=== PATIENT | male | born 1965 | race Caucasian/White ===

== ENCOUNTER 2024-11-07 10:24 | Inpatient (IN) | payer OTHER ==
[~2024-11-07] VITALS: Ht 180.3 cm; Wt 63.8 kg
[2024-11-07 10:52] LABS: BASOPHILS ABSOLUTE AUTO 0.04 K/mm3 (0.00-0.23); BASOPHILS PERCENT AUTO 0 % (0-2); EOSINOPHILS ABSOLUTE AUTO 0.00 K/mm3 (0.00-0.68); EOSINOPHILS PERCENT AUTO 0 % (0-6); Hematocrit 47.9 % (37.0-53.0); Hemoglobin 14.7 g/dL (13.5-17.5); IMMATURE GRAN ABSOLUTE AUTO 0.08 K/mm3 (0.00-0.10); IMMATURE GRAN PERCENT AUTO 1 % (0-1); LYMPHOCYTES ABSOLUTE AUTO 1.70 K/mm3 (0.84-5.20); LYMPHOCYTES PERCENT AUTO 11 % (21-46); MONOCYTES ABSOLUTE AUTO 1.27 K/mm3 (0.16-1.47); MONOCYTES PERCENT AUTO 8 % (4-13); Mean Corpuscular HGB Conc 30.7 g/dL (31.5-36.5); Mean Corpuscular Volume 97 fL (80-100); NEUTROPHILS ABSOLUTE AUTO 12.59 K/mm3 (1.96-9.15); NEUTROPHILS PERCENT AUTO 80 % (41-73); NRBC ABSOLUTE 0.02 K/mm3 (0.00-0.02); NRBC Auto 0.1 /100 WBC (0.0-0.2); Platelet Count 372 K/mm3 (150-400); RDW Coefficient Variation 15.7 % (11.7-14.2); RDW Standard Deviation 55.9 fL (35.1-46.3)
[2024-11-07 11:18] LABS: Alanine Aminotransfer (ALT/SGP 16.0 U/L (12-78); Albumin, Blood 2.6 g/dL (3.4-5.0); Albumin/Globulin Ratio 0.5 (0.8-1.8); Anion Gap 4.0 mmol/L (3-11); Aspartate Aminotrans (AST/SGOT 23.0 U/L (12-37); Bilirubin, Total 0.6 mg/dL (0.1-1.0); Blood Urea Nitrogen 39.0 mg/dL (8-24); CO2, Blood 37.0 mmol/L (21-32); Calcium, Blood 9.6 mg/dL (8.5-10.1); Chloride, Blood 118.0 mmol/L (98-108); Creatinine, Blood 0.82 mg/dL (0.60-1.20); Globulin, Blood 5.0 g/dL (2.2-4.0); Glucose, Blood 116.0 mg/dL (70-99); Potassium, Blood 3.1 mmol/L (3.5-5.5); Sodium, Blood 156.0 mmol/L (136-145); Total Protein, Blood 7.6 g/dL (6.4-8.2)
[2024-11-07] MEDS ORDERED: NS 1,000 ML IV SCH (13:00)
[2024-11-07 14:01] LABS: Magnesium, Blood 2.8 mg/dL (1.6-2.4); Phosphorus, Blood 3.1 mg/dL (2.5-4.9)
[2024-11-07 14:08] LABS: Source, Urine Voided
[2024-11-07 14:13] LABS: Bilirubin, Urine Neg (Neg); Color, Urine Yellow (P-Yellow); Glucose Qualitative, Urine Neg (Neg); Ketones, Urine Neg (Neg); Leukocyte Esterase, Urine Neg (Neg); Protein, Urine 2+ (Neg); Specific Gravity, Urine 1.010 (1.003-1.022); Urobilinogen, Urine NORM (Normal)
[2024-11-07 14:47] LABS: Red Blood Cells, Urine 0-2 /hpf (0-2)
[2024-11-07] MEDS ORDERED: NS 1,000 ML IV STA (16:10)
[2024-11-07] MEDS ORDERED: Albuterol 2.5 MG/3 ML VIAL INH PRN (16:10)
[2024-11-07] MEDS ORDERED: Ondansetron HCl 2 MG / ML 2ML Vial IV PRN (16:15)
[2024-11-07] MEDS ORDERED: Ipratropium/Albuterol SulF 2.5-0.5MG/3 ML Amp INH SCH (16:15)
[2024-11-07] MEDS ORDERED: Polyethylene Glycol 3350 17 gm PT SCH (17:00)
[2024-11-07] MEDS ORDERED: Piperacillin/Tazobactam Sod 3.375 GM in NS 100 ML IV SCH (17:00)
[2024-11-07 19:28] LABS: Anion Gap Unable to Calculate mmol/L (3-11); Blood Urea Nitrogen 32 mg/dL (8-24); CO2, Blood 36 mmol/L (21-32); Calcium, Blood 7.9 mg/dL (8.5-10.1); Chloride, Blood 122 mmol/L (98-108); Creatinine, Blood 0.69 mg/dL (0.60-1.20); Glucose, Blood 199 mg/dL (70-99); Potassium, Blood 2.4 mmol/L (3.5-5.5); Sodium, Blood 153 mmol/L (136-145)
[2024-11-07 20:00] VITALS: BP 100/78
[2024-11-07] MEDS ORDERED: FentaNYL Citrate 50 MCG/ML 2 ML Injection IV PRN (22:35)
[2024-11-08] VITALS (7 sets, daily range): BP systolic 73–107; BP diastolic 59–78
[2024-11-08 04:05] LABS: Hematocrit 37.5 % (37.0-53.0); Hemoglobin 11.0 g/dL (13.5-17.5); Mean Corpuscular HGB Conc 29.3 g/dL (31.5-36.5); Mean Corpuscular Volume 100 fL (80-100); NRBC ABSOLUTE 0.00 K/mm3 (0.00-0.02); NRBC Auto 0.0 /100 WBC (0.0-0.2); Platelet Count 256 K/mm3 (150-400); RDW Coefficient Variation 15.2 % (11.7-14.2); RDW Standard Deviation 55.7 fL (35.1-46.3)
[2024-11-08 04:24] LABS: Magnesium, Blood 2.4 mg/dL (1.6-2.4)
[2024-11-08 04:29] LABS: Anion Gap 3.0 mmol/L (3-11); Blood Urea Nitrogen 23.0 mg/dL (8-24); CO2, Blood 35.0 mmol/L (21-32); Calcium, Blood 7.7 mg/dL (8.5-10.1); Chloride, Blood 114.0 mmol/L (98-108); Creatinine, Blood 0.66 mg/dL (0.60-1.20); Glucose, Blood 361.0 mg/dL (70-99); Potassium, Blood 2.4 mmol/L (3.5-5.5); Sodium, Blood 150.0 mmol/L (136-145)
[2024-11-08] MEDS ORDERED: Potassium Chl 20MEQ/Water100ML 100 ML IV SCH (05:00)
--- NOTE | 2024-11-08 05:54 | NUR ---
SHIFT SUMMARY NO ACUTE CHANGES OVERNIGHT. PT REMAINS NON VERBAL AT BASELINE, ANSWERING YES OR NO QUESTIONS WITH THUMBS UP/DOWN. PT HAD PAST CVA WITH LEFT SIDED DEFICITS. Q2HR REPOSITIONING IN PLACE. PT ON TELE NSR IN 60s. PT ON 6L HUMIDIFIED O2 OVER TRACH SATTING >96%. PT REQUIRED FREQUENT DEEP SUCTIONING THROUGHOUT NIGHT WITH LARGE AMOUNTS OUT. SPUTUM COLLECTED AND SENT TO LAB. POTASSIUM REPLACED THROUGHOUT NIGHT PER ORDERS. IV ABX GIVEN PER EMAR. CONTINUES FLUIDS RUNNING @ 125. NO FURTHER QUESTIONS OR CONCERNS AT THIS TIME. WILL CONTINUE WITH PLAN OF CARE.
[2024-11-08] MEDS ORDERED: Enoxaparin 40 MG/0.4 ML SYR SC SCH (09:00)
[2024-11-08] MEDS ORDERED: Lactulose 200 GM/300 ML Enema 300ML BTL PR SCH (10:00)
[2024-11-08 14:10] LABS: Potassium, Blood 3.1 mmol/L (3.5-5.5); Sodium, Blood 156.0 mmol/L (136-145)
[2024-11-08] MEDS ORDERED: Magnesium Hydroxide Conc 10 ML UDC PT PRN (15:25)
[2024-11-08] MEDS ORDERED: Docusate Sodium Liquid 100 MG UDC PT PRN (15:25)
--- NOTE | 2024-11-08 17:23 | NUR ---
SHIFT SUMMARY. SHIFT HAS GONE WELL OVERALL. PT CONDITION OVERALL UNCHANGED THROUGHOUT SHIFT. NONVERBAL, ABLE TO ANSWER YES/NO QUESTIONS APPROPRIATELY VIA THUMBS UP/DOWN. HAS BEEN RUNNING SINUS ON TELE WITH RATE ANYWHERE BETWEEN 50s-70s. BP HAS BEEN SOFT BUT STABLE, MAP HAS REMAINED >65 THUS FAR. TUBE FEEDING ORDERS INPUT VIA DEPOSITION REPORTER THIS AFTERNOON, STARTING NOW. ONE LACTULOSE ENEMA ADMINISTERED THIS MORNING, PT WAS ABLE TO HAVE BM RIGHT AFTER WELL ANOTHER MORE RECENTLY. REFUSED EVENING LACTULOSE DESPITE EDUCATION ON INDICATION. Q2 HOUR REPOSITION. BED LOCKED IN LOWEST POSITION. CALL LIGHT LEFT WTIHIN REACH. CONTINUING TO MONITOR.
[2024-11-08] MEDS ORDERED: TAZOBACTAM SOD IV SCH (18:00)
[2024-11-08] MEDS ORDERED: PIPERACILLIN IV SCH (18:00)
[2024-11-08] MEDS ORDERED: DEXTROSE 5% IV SCH (18:00)
[2024-11-08] MEDS ORDERED: Insulin Human Lispro 100 Units/ML 3ML Syringe SC SCH (18:00)
[2024-11-08] MEDS ORDERED: Protein Supplement 30 ML UD PT SCH (21:00)
[2024-11-08] MEDS ORDERED: XANAX0.25 MG PT (21:15)
[2024-11-09] VITALS (7 sets, daily range): BP systolic 83–107; BP diastolic 62–74
[2024-11-09 03:27] LABS: BASOPHILS ABSOLUTE AUTO 0.01 K/mm3 (0.00-0.23); BASOPHILS PERCENT AUTO 0 % (0-2); EOSINOPHILS ABSOLUTE AUTO 0.15 K/mm3 (0.00-0.68); EOSINOPHILS PERCENT AUTO 2 % (0-6); Hematocrit 33.8 % (37.0-53.0); Hemoglobin 10.1 g/dL (13.5-17.5); IMMATURE GRAN ABSOLUTE AUTO 0.05 K/mm3 (0.00-0.10); IMMATURE GRAN PERCENT AUTO 1 % (0-1); LYMPHOCYTES ABSOLUTE AUTO 1.09 K/mm3 (0.84-5.20); LYMPHOCYTES PERCENT AUTO 14 % (21-46); MONOCYTES ABSOLUTE AUTO 0.56 K/mm3 (0.16-1.47); MONOCYTES PERCENT AUTO 7 % (4-13); Mean Corpuscular HGB Conc 29.9 g/dL (31.5-36.5); Mean Corpuscular Volume 98 fL (80-100); NEUTROPHILS ABSOLUTE AUTO 6.10 K/mm3 (1.96-9.15); NEUTROPHILS PERCENT AUTO 77 % (41-73); NRBC ABSOLUTE 0.00 K/mm3 (0.00-0.02); NRBC Auto 0.0 /100 WBC (0.0-0.2); Platelet Count 241 K/mm3 (150-400); RDW Coefficient Variation 14.6 % (11.7-14.2); RDW Standard Deviation 52.4 fL (35.1-46.3)
[2024-11-09 03:52] LABS: Magnesium, Blood 2.4 mg/dL (1.6-2.4); Thyroid Stimulating Hormone 4.79 uIU/mL (0.360-4.800)
[2024-11-09 03:53] LABS: Anion Gap 2.0 mmol/L (3-11); Blood Urea Nitrogen 10.0 mg/dL (8-24); CO2, Blood 34.0 mmol/L (21-32); Calcium, Blood 8.1 mg/dL (8.5-10.1); Chloride, Blood 115.0 mmol/L (98-108); Creatinine, Blood 0.53 mg/dL (0.60-1.20); Glucose, Blood 117.0 mg/dL (70-99); Phosphorus, Blood 1.7 mg/dL (2.5-4.9); Potassium, Blood 3.2 mmol/L (3.5-5.5); Sodium, Blood 148.0 mmol/L (136-145)
--- NOTE | 2024-11-09 04:53 | NUR ---
SHIFT SUMMARY NO ACUTE EVENTS OVERNIGHT. PTs BP SOFT THROUGHOUT NIGHT HOWEVER MAP >65. OTHERWISE VSS. HUMIDIFIED O2 OVER PTs TRACH. ON TELE PT BRADYCARDIC TOUCHING 40s BUT TYPICALLY IN THE 50s-60s. PT ABLE TO USE CALL LIGHT TO REQUEST DEEP SUCTIONING PRN. FREQUENTLY SUCTIONED WITH LARGE AMOUNTS OUT. PT REFUSED LACTULOSE ENEMA. LACTULOSE PT GIVEN ALONG WITH OTHER STOOL SOFTENERS. PT HAD MULTIPLE SOFT BMs THROUGHOUT NIGHT. NO C/O PAIn HOWEVER PT PERSISTENTLY USING CALL LIGHT D/T BEING UNCOMFORTABLE IN BED. FREQUENTLY REPOSITIONED WITH SEVERAL PILLOWS AND USING DIFFERENT TECHNIQUES HOWEVER PT COULD NOT GET COMFORTABLE. AWARE AND ATARAX PRN ORDERED AND GIVEN WITH GOOD EFFECT. PALLIATIVE CARE NURSE MESSAGED TO BRING IN NECK PILLOW FOR PT TO SEE IF MAYBE THAT MIGHT MAKE HIM MORE COMFORTABLE. TUBE FEEDINGS CONTINUED AT 14ML/HR WITH HOB ELEVATED. NO C/O NAUSEA OR STOMACH PAIN NOTED. NO FURTHER QUESTIONS OR CONCERNS AT THIS TIME. WILL CONTINUE WITH PLAN OF CARE.
[2024-11-09] MEDS ORDERED: Potassium Chl 20MEQ/Water100ML 100 ML IV SCH (06:15)
[2024-11-09] MEDS ORDERED: Potassium Phosphate Dibasic 30 MM in Dextrose 5% 500 ML IV STA (07:46)
[2024-11-09] MEDS ORDERED: Multivitamins-Minerals Liquid 15 ML Oral Syringe PT SCH (09:00)
--- NOTE | 2024-11-09 10:35 | NUR ---
AM NOTE: PATIENT ALERT AND ORIENTED X3. OPENS EYES WHEN ASKED AND GIVES THUMBS UP AND DOWN TO YES AND NO QUESTIONS. SPEECH VERY SLURRED AND HARD TO UNDERSTAND. ASKED TO BRING IN PATIENTS PASSY-TONY VALVE THAT PATIENT USES AT HOME. FOLLOWING COMMANDS. LEFT SIDE DEFICIT WITH NO MOVEMENTS TO UPPER AND LOWER EXTREMITIES. LEFT WRIST CONTRACTURE. MINIMAL MOVEMENT TO RIGHT LOWER EXTREMITIY. PATIENT ABLE TO USE RIGHT UPPER EXTREMITIY TO USE CALL LIGHT, AND SCRATCH HEAD. Q2 TURNING AND NEEDED. TELE SHOWING SR WITH HR 60-80'S. SBP 90'S WITH MAP GREATER THAN 65. PPP. NO EDEMA NOTED. DENIES CHEST PAIN/PRESSURE/PALPITATIONS. IV FLUIDS INFUSING PER EMAR. TRACH IN PLACE WITH SIZE 4. INNER CANNULA REPLACED THIS AM BY RT WELL TRACH CARE. SUCTION NEEDED. SPUTUM THICK/YELLOW/GONSALES. TRACH COLLAR AT 6L AND 40%. SATING ABOVE 95%. LUNG SOUNDS COARSE THROUGHOUT. BOWEL TONES PRESENT THROUGHOUT ALL FOUR QUADRANTS. PEG TUBE IN PLACE. TF AND WATER FLUSHES PER EMAR. ATTENDS IN PLACE. CONDOM CATH WITH YELLOW/JOSSY URINE OUTPUT. Q6 SUGARS. SKIN PALE WITH BLANCHABLE RED COCCYX, MEPILEX REPLACED THIS AM. PATIENT VERY THIN WITH BONY PROMINENCES. WAFFLE LAYOVER PLACED ON BED WELL Q2 TURNING AND NEEDED. MEPILEXES PLACED OVER SCAPULAS FOR PROTECTION. LEFT EAR WOUND, SEE CHART FOR PHOTO, DRESSING CHANGED. RIGHT BUTTOCK SKIN TEAR IN HEALING STAGES. DR. NDIAYE AT BEDSIDE THIS AM, THIS RN PRESENT. CALL LIGHT IN REACH. PATIENT DENIES NEEDS AT THIS TIME.
--- NOTE | 2024-11-09 14:38 | NUR ---
UPDATE: THIS RN PLACED CALL TO DR. NDIYAE TO UPDATE ON 1200 RESULTED NA. ORDERS TO DC D5 AT 125 ML/HR AND TO INCREASE TUBE FEED TO 20ML/HOUR CONTINUOUS WITH 200ML Q2 WATER FLUSHES. ORDERS IN PLACE. AT BEDSIDE AND UPDATED ON PLAN OF CARE. PATIENT CONTINUES TO NEED DEEP SUCTION ABOUT EVERY 2 HOURS. SPUTUM REMAINS THICK/YELLOW/GONSALES IN COLOR. ON ROOM AIR PER RT AND MAINTAINING SATURATIONS ABOVE 92%. TELE REMAINS SR. BLOOD PRESSURES CONTINUE TO BE SOFT WITH MAP ABOVE 65. FREQUENT REPOSITIONING, ABOUT EVERY 30 MIN - 1 HOUR.
--- NOTE | 2024-11-09 16:07 | NUR ---
PATIENT MOVED TO PCU 1 DUE TO CONSTRUCTION STARTING IN PCU 4 SOON. CALLED TO UPDATE, NO ANSWER AND MAILBOX FULL SO THIS RN UNABLE TO LEAVE VOICEMAIL. WILL ATTEMPT TO CALL AGAIN LATER IN SHIFT.
--- NOTE | 2024-11-09 19:34 | NUR ---
SHIFT SUMMARY: VITAL SIGNS STABLE. REMAINS SINUS RHYTHM ON TELE. ON ROOM AIR WITH TRACH COLLAR IN PLACE FOR HUMIDIFICATION. STILL NEEDING FREQUENT SUCTIONING. TUBE FEED INFUSING PER EMAR. BOWEL MOVEMENT X2 TODAY - LARGE, LIQUID AND BROWN. FREQUENT TURNING. CONDOM CATH REMAINS IN PLACE. CALL LIGHT IN REACH. REPORTED OFF TO JUDY LARA.
[2024-11-10] VITALS (8 sets, daily range): BP systolic 76–127; BP diastolic 59–91
[2024-11-10 05:26] LABS: BASOPHILS ABSOLUTE AUTO 0.03 K/mm3 (0.00-0.23); BASOPHILS PERCENT AUTO 0 % (0-2); EOSINOPHILS ABSOLUTE AUTO 0.25 K/mm3 (0.00-0.68); EOSINOPHILS PERCENT AUTO 4 % (0-6); Hematocrit 36.5 % (37.0-53.0); Hemoglobin 11.4 g/dL (13.5-17.5); IMMATURE GRAN ABSOLUTE AUTO 0.07 K/mm3 (0.00-0.10); IMMATURE GRAN PERCENT AUTO 1 % (0-1); LYMPHOCYTES ABSOLUTE AUTO 1.09 K/mm3 (0.84-5.20); LYMPHOCYTES PERCENT AUTO 16 % (21-46); MONOCYTES ABSOLUTE AUTO 0.58 K/mm3 (0.16-1.47); MONOCYTES PERCENT AUTO 9 % (4-13); Mean Corpuscular HGB Conc 31.2 g/dL (31.5-36.5); Mean Corpuscular Volume 96 fL (80-100); NEUTROPHILS ABSOLUTE AUTO 4.81 K/mm3 (1.96-9.15); NEUTROPHILS PERCENT AUTO 70 % (41-73); NRBC ABSOLUTE 0.00 K/mm3 (0.00-0.02); NRBC Auto 0.0 /100 WBC (0.0-0.2); Platelet Count 237 K/mm3 (150-400); RDW Coefficient Variation 14.5 % (11.7-14.2); RDW Standard Deviation 49.6 fL (35.1-46.3)
[2024-11-10 05:48] LABS: Anion Gap 7.0 mmol/L (3-11); Blood Urea Nitrogen 8.0 mg/dL (8-24); CO2, Blood 30.0 mmol/L (21-32); Calcium, Blood 8.2 mg/dL (8.5-10.1); Chloride, Blood 111.0 mmol/L (98-108); Creatinine, Blood 0.55 mg/dL (0.60-1.20); Glucose, Blood 101.0 mg/dL (70-99); Potassium, Blood 3.5 mmol/L (3.5-5.5); Sodium, Blood 144.0 mmol/L (136-145)
--- NOTE | 2024-11-10 06:25 | NUR ---
PT MONITORED THROUGH THE SHIFT.PT SUCTIONED PRN AND PER PT'S REQUEST OF COPIOUS AMOUNT OF THICK YELLOW SECRETIONS.PT ANXIOUS MOST OF THE NIGHT USING THE CALL LIGHT TO CALL STAFF INTO THE ROOM BUT MOST OF THE TIME NOT ABLE TO COMMUNICATE HIS NEEDS.PT SLEPT FOR A FEW HOURS AFTER HE RECEIVED PRN SEROQUEL AND ATARAX. PT GIVEN LACTULOSE ORDERED.PT HAS HAD A TOTAL OF 6 EXTRA LARGE AMOUNT OF LOOSE STOOL SINCE 1800 LAST EVENING.PT REPORTS THAT THE PAIN IN HIS ABDOMEN IS BETTER.REPOSITIONED Q2 AND MORE FREQUENTLY PER PT'S REQUEST.PT DENIES PAIN,DENIES NEEDS THIS MORNING.CALL LIGHT AND PT'S ITEMS WITHIN REACH.MONITORING ONGOING PER CAREPLAN.
[2024-11-10] MEDS ORDERED: Furosemide 10 MG / ML 2ML Vial IV ONE (12:20)
--- NOTE | 2024-11-10 14:57 | NUR ---
PATIENT IS ALERT, USES HANDS TO COMMUNICATE AND CAN SAY "YES" AND "NO". RT SUCTIONS TRACH NEEDED. ON RA. HUMIDIFIER IN PLACE. HELPED THE PATIENT SUCTION HIS MOUTH AT HIS REQUEST. TUBE FEEDING IS RUNNING AT 30 ML/HR WITH A FLUSH OF 200 ML/Q3H. THIS MORNING, THE PATIENT C/O FEELING FULL, DR. NDIAYE WAS NOTIFIED AND CHANGES MADE. LIQUID BM'S THIS SHIFT, LACTULOSE ORDER CHANGED. CONDOM CATH IN PLACE. ONE DOSE OF IV LASIX ADMINISTERED. THE PATIENT'S WAS ABLE TO SPEAK WITH DR. NDIAYE TODAY. WILL CONTINUE TO MONITOR
[2024-11-10] MEDS ORDERED: Ondansetron HCl 2 MG / ML 2ML Vial IV PRN (16:10)
--- NOTE | 2024-11-10 17:57 | NUR ---
WOUND CARE PROVIDED TO LEFT EAR. FOAM DRESSING IN PLACE ON COCCYX
--- NOTE | 2024-11-10 19:48 | NUR ---
ASSUMPTION OF CARE ASSUMED PT'S CARE AT 1900,BEDSIDE REPORT COMPLETED.RT IN ROOM PROVIDING CARE.PT IN BED WITH EYES CLOSED,OPENS EYES TO VERBAL COMMAND.PT DENIES PAIN,DENIES NEEDS.PLAN OF CARE REVIEWED.TF INFUSING ORDERED.PT DENIES PAIN,DENIES NEEDS AT THIS TIME.CALL LIGHT AND PT'S ITEMS WITHIN REACH.MONITORING ONGOING PER CAREPLAN.
[2024-11-10] MEDS ORDERED: Trimethoprim 80MG/Sulfamethoxazole 400MG/10ML UDC PO SCH (21:00)
[2024-11-11] MEDS ORDERED: Dextran/Hypromellose/Glycerin 15 DROP/ML BTL BOTHEYES PRN (01:25)
[2024-11-11 03:42] VITALS: BP 113/77
--- NOTE | 2024-11-11 06:32 | NUR ---
PT MONITORED THROUGHT THE SHIFT.PT SLEPT ON/OFF.REPOSITIONED Q2HRS AND MORE FREQUENTLY PER PT'S REQUEST.SUCTIONED PRN, SECRETIONED REDUCED IN AMOUNT COMPARED TO THE PREVIOUS NIGHT.PT HAD THREE EXTRA LARGE BOWEL LOOSE MOVEMENTS OVERNIGHT.TOLERATING TUBE FEEDING WELL,NO C/O NAUSEA,C/O MILD ABDOMINAL PAIN.PT DENIED NEED FOR PRN PAIN MEDS,STATED THAT THE PAIN IS TOLERABLE.PT RESTING IN BED WITH EYES CLOSED ,EASILY AROUSABLE.PT DENIES PAIN,DENIES NEEDS,CALL LIGHT AND PT'S ITEMS WITHIN REACH.MONITORINF ONGOING PER CAREPLAN.
[2024-11-11 07:59] VITALS: BP 91/66
[2024-11-11] MEDS ORDERED: Furosemide 10 MG / ML 2ML Vial IV ONE (11:00)
[2024-11-11 11:29] VITALS: BP 106/73
[2024-11-11 13:22] LABS: Anion Gap 4.0 mmol/L (3-11); Blood Urea Nitrogen 7.0 mg/dL (8-24); CO2, Blood 33.0 mmol/L (21-32); Calcium, Blood 8.5 mg/dL (8.5-10.1); Chloride, Blood 108.0 mmol/L (98-108); Creatinine, Blood 0.56 mg/dL (0.60-1.20); Glucose, Blood 88.0 mg/dL (70-99); Potassium, Blood 3.6 mmol/L (3.5-5.5); Sodium, Blood 141.0 mmol/L (136-145)
[2024-11-11 14:00] LABS: BASOPHILS ABSOLUTE AUTO 0.04 K/mm3 (0.00-0.23); BASOPHILS PERCENT AUTO 0 % (0-2); EOSINOPHILS ABSOLUTE AUTO 0.49 K/mm3 (0.00-0.68); EOSINOPHILS PERCENT AUTO 5 % (0-6); Hematocrit 31.6 % (37.0-53.0); Hemoglobin 9.9 g/dL (13.5-17.5); IMMATURE GRAN ABSOLUTE AUTO 0.06 K/mm3 (0.00-0.10); IMMATURE GRAN PERCENT AUTO 1 % (0-1); LYMPHOCYTES ABSOLUTE AUTO 1.30 K/mm3 (0.84-5.20); LYMPHOCYTES PERCENT AUTO 13 % (21-46); MONOCYTES ABSOLUTE AUTO 0.62 K/mm3 (0.16-1.47); MONOCYTES PERCENT AUTO 6 % (4-13); Mean Corpuscular HGB Conc 31.3 g/dL (31.5-36.5); Mean Corpuscular Volume 95 fL (80-100); NEUTROPHILS ABSOLUTE AUTO 7.56 K/mm3 (1.96-9.15); NEUTROPHILS PERCENT AUTO 75 % (41-73); NRBC ABSOLUTE 0.00 K/mm3 (0.00-0.02); NRBC Auto 0.0 /100 WBC (0.0-0.2); Platelet Count 214 K/mm3 (150-400); RDW Coefficient Variation 14.4 % (11.7-14.2); RDW Standard Deviation 48.7 fL (35.1-46.3)
--- NOTE | 2024-11-11 14:42 | NUR ---
PATIENT IS ALERT AND ORIENTED TO PLACE, SELF, AND MOST DETAILS SURROUNDING SITUATION. HE IS ABLE TO COMMUNICATE NEEDS WELL BY GIVING A THUMBS UP OR DOWN. VOICE SLURRED AND HARD TO UNDERSTAND AT TIMES. USING CALL LIGHT WITH RIGHT HAND. LEFT SIDE DEFICIT WITH NO MOVEMENT TO LEFT UPPER AND LOWER EXTREMITIES. LEFT HAND CONTRACTED. RIGHT LOWER EXTREMITY WITH MINIMAL RANGE OF MOTION. USING RIGHT HAND/ARM. Q2 TURNING AND NEEDED. TRACH IN PLACE WITH SIZE 4 CANNULA. RT TO REPLACE INNER CANNULA THIS SHIFT. PATIENT CONTINUES TO HAVE SPUTUM THAT IS THICK AND YELLOW/GONSALES IN COLOR. SUCTION SET UP AT BEDSIDE. TRACH COLLAR HUMIDIFICATION IN PLACE. PATIENT DESATTED TO 88-89% THIS AM AND NEEDING 28% FIO2. SATING ABOVE 95% AT THIS TIME. LUNG SOUNDS COARSE. INTERMIT COUGH. Q4 ORAL CARE AND NEEDING. PATIENT MISSING FRONT TOOTH AND HISTORY OF TONGUE CANCER. TELE SHOWING SR WITH HR 60-80'S. SBP 90-100'S. DENIES CHEST PAIN/PRESSURE/PALPIATIONS. MINIMAL EDEMA TO BLE. IV SALINE LOCKED. PPP. BOWEL TONES PRESENT THROUGHOUT ALL FOUR QUADRANTS. NPO. PEG TUBE IN PLACE. TUBE FEEDINGS PER HUMAN RESOURCES MANAGER MANUFACTURING ORDERS. TUBE FEED AT 30ML/HR WITH 200ML Q4 WATER FLUSHES. DENIES ABDOMINAL PAIN/NAUSEA. HUMAN RESOURCES MANAGER MANUFACTURING TO BEDSIDE TO DISCUSS PLAN OF CARE WITH AND PROVIDED WITH MULTIPLE OPTIONS TO TRY AND INCREASE TUBE FEED TO MEET PATIENT'S CALORIC GOALS. PLAN FOR NEW TUBE FEED FORMULA, ORDERS IN PLACE AND SHOULD ARRIVE TOMORROW. TUBE FEED CONTINUES AT 30ML/HR AT THIS TIME. SKIN PALE/WARM. BLANCHABLE RED COCCYX. VERY BONY PROMINENCES, MEPILEXES IN PLACE TO HELP PROTECT SCAPULA'S, SPINE AND COCCYX. LEFT EAR WITH WOUND (PRESENT ON ADMIT), SEE CHART PHOTO. THIS RN CLEANSED THIS AM, APPLIED MEDIHONEY AND OFFLOADED EAR WITH NECK PILLOW TO REDUCE PRESSURE. DR. NDIAYE TO BEDSIDE THIS AM, THIS RN AND HUMAN RESOURCES MANAGER MANUFACTURING PRESENT FOR MD STEPHENS. TO BEDSIDE AND UPDATED ON PLAN OF CARE BY THIS RN AND HUMAN RESOURCES MANAGER MANUFACTURING. CASE MANAGEMENT UPDATED ON POSSIBLE DISCHARGE NEEDS AND PLANS TO MEET WITH .
[2024-11-11 15:59] VITALS: BP 111/84
--- NOTE | 2024-11-11 18:17 | NUR ---
SHIFT SUMMARY: PATIENT REMAINS ON 28% FIO2 SATING ABOVE 95%. NEEDING SUCTION LESS FREQUENT THIS AFTERNOON/EVENING. SPUTUM CONTINUES TO BE THICK AND GONSALES IN COLOR. TELE SHOWING SR WITH HR 70'S. TUBE FEED INCREASED TO 45ML/HR WITH 200ML Q4 WATER FLUSHES AND TOLERATING AT THIS TIME. BOWEL MOVEMENT X1 THUS FAR. CONDOM CATH REMAINS IN PLACE. AT BESIDE THROUGHOUT SHIFT AND CONTINUALLY UPDATED ON PLAN OF CARE. DR. NDIAYE BY FOR SECOND ROUNDS. CALL LIGHT IN REACH. DENIES NEEDS AT THIS TIME.
[2024-11-11 20:20] VITALS: BP 104/75
[2024-11-11] MEDS ORDERED: Lactobacil 2-S.Thermo-Bifido 1 1 Cap PO SCH (21:00)
[2024-11-11 23:51] VITALS: BP 129/90
[2024-11-12 04:05] VITALS: BP 133/91
--- NOTE | 2024-11-12 04:52 | NUR ---
SHIFT SUMMARY NO ACUTE CHANGES OVERNIGHT. VSS ON RA WITH TRACH COLLAR ON 20% FIO2. DEEP SUCTIONED THROUGHOUT NIGHT BUT NOT OFTEN PREVIOUS NIGHTS. PT HAD MULTIPLE LIQUID BMs THROUGHOUT NIGHT, 6 TO BE EXACT. TRIED [employer]. THAT DID NOT WORK. SWITCHED OUT CONDOM CATH MULTIPLE TIMES BUT PT KEPT PULLING EVERYTHING OFF. PT CLEANED UP MULTIPLE TIMES. WILL PASS ON TO DAY TEAM TO STOP LACTULOSE. PT WAS NOT ABLE TO GET ANY SLEEP D/T SEVERAL CLEAN UPS. TF CONTINUES TO RUN @ 45ML/HR WITH Q4HR 200ML FLUSHES. NO FURTHER QUESTIONS OR CONCERNS AT THIS TIME. WILL CONTINUE WITH PLAN OF CARE.
[2024-11-12 08:07] VITALS: BP 123/78
[2024-11-12] MEDS ORDERED: FAMO20 PT (10:05)
[2024-11-12] MEDS ORDERED: ARTIFICIAL TEAR15 M2 BOTHEYES (10:05)
[2024-11-12] MEDS ORDERED: B-1100 M1 PT (10:08)
[2024-11-12] MEDS ORDERED: MULTIVITAMIN PT (10:08)
[2024-11-12] MEDS ORDERED: QUET25 PT (10:08)
[2024-11-12] MEDS ORDERED: PROBIOTIC1 EA13 PO (10:09)
[2024-11-12] MEDS ORDERED: LACT10SY PT (10:09)
[2024-11-12] MEDS ORDERED: ACET325 PT (10:10)
[2024-11-12] MEDS ORDERED: ALBU3IS INH (10:13)
[2024-11-12] MEDS ORDERED: SULTRIL10 PT (10:30)
[2024-11-12 11:56] VITALS: BP 100/65
--- NOTE | 2024-11-12 15:11 | NUR ---
PT IS A&Ox3 AND ABLE TO MAKE NEEDS KNOWN. HE IS DIFFICULT TO UNDERSTAND D/T PREVIOUS TONGUE CANCER AND RADIATION. HE HAS A #[address] WITH HUMIDIFICATION VIA TRACH COLLAR. FEEDINGS VIA PEG TUBE @ 45ML/HR W/Q4HR FWF. PT BEING REPOSITIONED Q2HR OR NEEDED. TRANSPORT PICKED HIM UP @ 1500 AND HE WAS TRANSFERRED TO [facility] W/O2 @ 4L VIA TRACH COLLAR. PERSONAL BELONGINGS SENT HOME WITH AND LAST BAG SENT WITH HIM.
== END 2024-11-12 15:17 | disposition home health service (06) | DRG 871 ==
LOC: ER 10:24 → PCU 16:09
PROVIDERS: Emergency Medicine; Internal Medicine; ADMIT Internal Medicine
DX: A41.9 Sepsis, unspecified organism (principal); E43 Unspecified severe protein-calorie malnutrition; J18.9 Pneumonia, unspecified organism; J96.21 Acute and chronic respiratory failure with hypoxia; E87.0 Hyperosmolality and hypernatremia; I69.354 Hemiplegia and hemiparesis following cerebral infarction affecting left non-dominant side; Z68.1 Body mass index [BMI] 19.9 or less, adult; R64 Cachexia; R65.20 Severe sepsis without septic shock; E86.0 Dehydration; R13.12 Dysphagia, oropharyngeal phase; K59.09 Other constipation; E87.6 Hypokalemia; E83.39 Other disorders of phosphorus metabolism; Z74.01 Bed confinement status; Z85.810 Personal history of malignant neoplasm of tongue; Z93.1 Gastrostomy status; Z93.0 Tracheostomy status; Z88.5 Allergy status to narcotic agent; Z92.3 Personal history of irradiation; Z92.21 Personal history of antineoplastic chemotherapy; Z87.891 Personal history of nicotine dependence; I69.391 Dysphagia following cerebral infarction
CPT/HCPCS: 31720; 36415; 71045; 74177; 80048; 80053; 81001; 82947; 83605; 83690; 83735; 84100; 84132; 84145; 84295; 84443; 85025; 85027; 87040; 87070; 87077; 87186; 87205; 93005; 93010; 94640; 94664; 94761; 94762; 96360; 99285-25; A6590; A9270; J0456; J1650; J1938; J2405; J2543; J3010; J3411; J3480; J7030; J7050; J7060; J7070; Q0177; Q9967

== ENCOUNTER 2025-02-02 23:39 | Emergency (ER) | payer OTHER ==
[~2025-02-02] VITALS: Ht 175.3 cm; Wt 67.1 kg
[~2025-02-02 23:39] MED LIST: ACET325 PT; ALBU3IS INH; ARTIFICIAL TEAR15 M2 BOTHEYES; B-1100 M1 PT; FAMO20 PT; LACT10SY PT; MULTIVITAMIN PT; PROBIOTIC1 EA13 PO; QUET25 PT; SULTRIL10 PT; XANAX0.25 MG PT
== END 2025-02-03 02:30 | disposition home or self-care (01) ==
LOC: ER 23:39
DX: K94.23 Gastrostomy malfunction (principal); Z85.818 Personal history of malignant neoplasm of other sites of lip, oral cavity, and pharynx; Z86.73 Personal history of transient ischemic attack (TIA), and cerebral infarction without residual deficits; Z87.891 Personal history of nicotine dependence; Z88.5 Allergy status to narcotic agent; Z91.018 Allergy to other foods; Z79.899 Other long term (current) drug therapy
CPT/HCPCS: 99283

== ENCOUNTER 2025-02-04 12:49 | Emergency (ER) | payer OTHER ==
[~2025-02-04] VITALS: Ht 180.3 cm; Wt 55.3 kg
== END 2025-02-04 17:22 | disposition home or self-care (01) ==
LOC: ER 12:49
DX: K94.23 Gastrostomy malfunction (principal); Z91.018 Allergy to other foods; Z79.899 Other long term (current) drug therapy; Z87.891 Personal history of nicotine dependence; Z88.8 Allergy status to other drugs, medicaments and biological substances
CPT/HCPCS: 99283-25